=== PATIENT | female | born 1955 | race Caucasian/White ===

== ENCOUNTER 2017-03-13 00:51 | Emergency (ER) | payer MEDICAID ==
--- NOTE | ~2017-03-13 | CR21 ---
[facility] A Service of [facility] & [facility] RADIOLOGY TEXT RESULTS PATIENT: SERENA ACEVEDO LOCATION: [facility] : 59 UNIT #: [id number] AGE: [address]: Jose Wilkins MD SEX: F ORDER DR: [id number] [facility] [address] [place], [place] [address] [id number] E MR#: [id number] Acc #: [id number] NAME: SERENA ACEVEDO : 1955 SEX: F STUDY DATE/TIME: 03/13/2017 01:48 UNIT: [facility] ROOM: STUDY DESCRIPTION: CR Ankle Min 3 Views Rt Attending Physician: Jose Wilkins M.D. Ordering Physician: Jose Wilkins M.D. Primary Care Physician: Primary Care Physician No MEDICAL IMAGING REPORT This report is preliminary unless electronic signature is present EXAM Right ankle, 03/13 0148 hours INDICATIONS Ankle pain and swelling for 4 days. No trauma. FINDINGS 3 views of the right ankle were obtained. Patient is osteopenic. There is chronic bone fragment below the distal fibula suggesting old trauma. No acute fracture or malalignment is seen. Soft tissue swelling is present, predominantly on the medial side. IMPRESSION No acute fracture or malalignment. Patient is osteopenic and there is some soft tissue swelling, predominantly on the medial side. Dictated by... Cl Graham Jr., M.D. THIS IS AN ELECTRONICALLY VERIFIED REPORT Cl Graham Jr., M.D. at 03/13/2017 5:36 AM SHEEBA/raghav TD: 03/13/2017 03:18 JOB #: [id number] MEDICAL IMAGING REPORT Page 1 of 1 COPY
--- NOTE | ~2017-03-13 | EKG ---
PATIENT: SERENA ACEVEDO UNIT #: [id number] Ventricular Rate: 81 BPM Atrial Rate: 81 BPM P-R Interval: 112 ms QRS Duration: 86 ms Q-T Interval: 396 ms QTC Calculation(Bezet): 460 ms P [place]: 18 degrees Calculated R [place]: 55 degrees Calculated T [place]: 52 degrees Diagnosis Line: Normal sinus rhythm Diagnosis Line: Normal ECG Diagnosis Line: No previous ECGs available Diagnosis Line: Confirmed by LISSETT PHILLIPS MD ([id number]) on Diagnosis Line: 03/13/2017 8:55:27 AM INTERPRETING MD: JACQUELINE JOSHI
--- NOTE | ~2017-03-13 | CR72 ---
[facility] A Service of [facility] & [facility] RADIOLOGY TEXT RESULTS PATIENT: SERENA ACEVEDO LOCATION: [facility] : 59 UNIT #: [id number] AGE: [address]: Jose Wilkins MD SEX: F ORDER DR: [id number] [facility] [address] [place], [place] [address] [id number] E MR#: [id number] Acc #: [id number] NAME: SERENA ACEVEDO : 1955 SEX: F STUDY DATE/TIME: 03/13/2017 01:47 UNIT: [facility] ROOM: STUDY DESCRIPTION: CR Chest Single View Portable Attending Physician: Jose Wilkins M.D. Ordering Physician: Jose Wilkins M.D. Primary Care Physician: Primary Care Physician No MEDICAL IMAGING REPORT This report is preliminary unless electronic signature is present EXAM Portable chest, 03/13 at 0147 hours INDICATIONS Shortness of air and left side chest pain with swelling in the ankles. Symptoms for 4 days. FINDINGS AP portable chest is compared with 04/05/2016. Cardiac and mediastinal contours are normal. The lungs are clear. No pneumothorax is seen. Multiple old left rib fractures are again identified. IMPRESSION No active disease. Dictated by... Cl Graham Jr., M.D. THIS IS AN ELECTRONICALLY VERIFIED REPORT Cl Graham Jr., M.D. at 03/13/2017 5:36 AM SHEEBA/raghav TD: 03/13/2017 03:24 JOB #: [id number] MEDICAL IMAGING REPORT Page 1 of 1 COPY
[~2017-03-13 00:51] MED LIST: ADVAIR 250-501 EAC1 IH; BACTRIM DS TABL1 TA1 PO; BACTROBAN22 GM TOP; FAMOTIDINE PO; FOLIC ACID1 MG PO; KEFLEX125 MG/5 M PO; MEDROL4 MG/DOSE- PO; METHADOSE PO; NO MEDICATIONS; OMNICEF300 MG PO; PREDNISONE PO; PROAIR HFA8.5 GM IH; PYRIDIUM PO; THERAPEUTIC FOR1 TA1 PO; VIBRAMYCIN100 M1 PO; ZITHROMAX500 MG PO
[2017-03-13 03:13] LABS: BASOPHIL% 0.2 % (0-2.5); EOSINOPHIL# 0.1 X10e3 (0-0.7); EOSINOPHIL% 1.1 % (0.0-7.0); HEMATOCRIT 37.8 % (35.0-45.0); HEMOGLOBIN 12.8 gm/dL (12.0-16.0); LYMPHOCYTE# 4.2 X10e3 (1.0-3.5); LYMPHOCYTE% 47.3 % (17.0-45.0); MEAN CELL VOLUME 88.9 FL (83-96); MEAN CORPUSCULAR HEMOGLOBIN 30.1 PG (28-34); MEAN CORPUSCULAR HGB CONC 33.9 g/dL (30-36); MEAN PLATELET VOLUME 8.2 FL (6.5-11.5); MONOCYTE# 0.5 X10e3 (0-1.0); NEUTROPHIL# 4.1 X10e3 (1.5-7.1); NEUTROPHIL% 45.4 % (40-75); PLATELET COUNT 255 X10e3 (140-420); RED BLOOD COUNT 4.25 X10e (3.90-5.30); RED CELL DISTRIBUTION WIDTH 14.2 % (11.0-15.5); WHITE BLOOD COUNT 8.9 X10e3 (4.0-10.5)
[2017-03-13 03:16] LABS: DIFF IND NO
[2017-03-13 03:37] LABS: ALBUMIN SERUM 3.8 g/dL (3.5-5.0); BILIRUBIN, DIRECT 0.2 mg/dL (0.0-0.2); BILIRUBIN,INDIRECT 0.3 mg/dL (0.0-0.9); BILIRUBIN,TOTAL 0.5 mg/dL (0.2-2.0); CALCIUM SERUM 8.7 mg/dL (8.4-10.2); CREATININE SERUM 0.6 mg/dL (0.6-1.4); GLOM FILT RATE Estimated 99.8 mL/min (>60); POTASSIUM 3.4 mmol/L (3.5-5.1); PROTEIN TOTAL SERUM 7.3 g/dL (6.0-8.3)
[2017-03-13 04:21] LABS: URINE SOURCE CLEAN CATCH
[2017-03-13 04:25] LABS: URINE APPEARANCE CLEAR; URINE BILIRUBIN NEG (NEG); URINE BLOOD TRACE (NEG); URINE COLOR YELLOW; URINE GLUCOSE NEG (NEG); URINE KETONE NEG (NEG); URINE LEUKOCYTE ESTERASE TRACE (NEG); URINE NITRATE NEG (NEG); URINE PH 5.5 (5-8); URINE PROTEIN NEG (NEG); URINE SPECIFIC GRAVITY 1.007 (1.003-1.035)
[2017-03-13 04:28] LABS: URINE BACTERIA AUWI NEG (NEGATIVE); URINE SQUAMOUS EPITHELIAL CELL NONE SEEN /[HPF]
[2017-03-13 04:31] LABS: CULTURE INDICATED? NO
[2017-03-13 04:35] LABS: AMPHETAMINE NEG (NEG); BARBITURATES NEG (NEG); BENZODIAZEPINES NEG (NEG); COCAINE NEG (NEG); MARIJUANA NEG (NEG); OPIATES NEG (NEG); TRICYCLIC ANTIDEPRESSANTS NEG (NEG); U METHADONE NEG (NEG)
== END 2017-03-13 06:30 | disposition home or self-care (01) ==
LOC: CED 00:51
PROVIDERS: Emergency Medicine
DX: J44.1 Chronic obstructive pulmonary disease with (acute) exacerbation (principal); R60.0 Localized edema; M19.071 Primary osteoarthritis, right ankle and foot
CPT/HCPCS: 36415; 71010; 73610; 80048; 80076; 80307; 81003; 83880; 85025; 93005; 94640; 96374; 96375; 99284; J1885; J2930

== ENCOUNTER 2017-04-18 11:44 | Emergency (ER) | payer MEDICAID ==
--- NOTE | ~2017-04-18 | EKG ---
PATIENT: SERENA ACEVEDO UNIT #: [id number] Ventricular Rate: 75 BPM Atrial Rate: 75 BPM P-R Interval: 110 ms QRS Duration: 84 ms Q-T Interval: 464 ms QTC Calculation(Bezet): 518 ms P [place]: 73 degrees Calculated R [place]: 56 degrees Calculated T [place]: 58 degrees Diagnosis Line: Sinus rhythm with short IN Diagnosis Line: Prolonged QT Diagnosis Line: Abnormal ECG Diagnosis Line: When compared with ECG of 13-MAR-2017 02:14, Diagnosis Line: QT has lengthened Diagnosis Line: Confirmed by LUCILA WISEMAN MD ([id number]) on Diagnosis Line: 04/18/2017 3:09:29 PM INTERPRETING MD: ESTEBAN
--- NOTE | ~2017-04-18 | CR72 ---
[facility] A Service of [facility] & [facility] RADIOLOGY TEXT RESULTS PATIENT: SERENA ACEVEDO LOCATION: [facility] : 59 UNIT #: [id number] AGE: [address]: Jose Wilkins MD SEX: F ORDER DR: [id number] [facility] [address] [place], [place] [address] [id number] E MR#: [id number] Acc #: [id number] NAME: SERENA ACEVEDO. : 1955 SEX: F STUDY DATE/TIME: 04/18/2017 13:18 UNIT: [facility] ROOM: STUDY DESCRIPTION: CR Chest Single View Portable Attending Physician: Jose Wilkins M.D. Ordering Physician: Jose Wilkins M.D. Primary Care Physician: No Primary Care Physician MEDICAL IMAGING REPORT This report is preliminary unless electronic signature is present EXAM Portable chest; 04/18/2017. HISTORY Left-side chest pain and left shoulder pain, shortness of breath, dizziness, nausea and fever beginning today. Asthma. Smoking history for 40 years. FINDINGS The heart is normal in size. Lungs are hyperinflated with emphysematous and fibrotic changes characteristic of COPD. No airspace consolidation is seen. There are no pleural effusions. Old healed left rib fractures are noted. There is an acute or subacute fracture involving the region of the surgical neck of the proximal left humerus. IMPRESSION 1. COPD. No active pulmonary disease. 2. Acute or subacute fracture involving the surgical neck of the proximal left humerus. Dictated by... Brigido Durham M.D. THIS IS AN ELECTRONICALLY VERIFIED REPORT Brigido Durham M.D. at 04/19/2017 6:29 AM DREW/joe TD: 04/18/2017 16:01 JOB #: [id number] MEDICAL IMAGING REPORT Page 1 of 1 COPY
--- NOTE | ~2017-04-18 | CR229 ---
[facility] A Service of [facility] & [facility] & [facility] RADIOLOGY TEXT RESULTS PATIENT: SERENA ACEVEDO LOCATION: [facility] : 59 UNIT #: [id number] AGE: [address]: Jose Wilkins MD SEX: F ORDER DR: [id number] [facility] [address] [place], [place] [address] [id number] E MR#: [id number] Acc #: [id number] NAME: SERENA ACEVEDO. : 1955 SEX: F STUDY DATE/TIME: 04/18/2017 13:18 UNIT: [facility] ROOM: STUDY DESCRIPTION: CR Shoulder Min 2 View Lt Attending Physician: Jose Wilkins M.D. Ordering Physician: Ed Doctor [id number] [facility] Primary Care Physician: Primary Care Physician No MEDICAL IMAGING REPORT This report is preliminary unless electronic signature is present EXAM Left shoulder 3 views, 04/18/2017 HISTORY Left shoulder pain beginning today status post fall. FINDINGS Three views of the left shoulder demonstrate a comminuted minimally-displaced fracture through the surgical neck of the left humerus. No other fracture or dislocation is seen. The bones are osteopenic. Old healed left rib fractures are noted. IMPRESSION 1. Comminuted minimally-displaced fracture through the surgical neck of the proximal left humerus. 2. Old healed left rib fractures. 3. Osteopenia. Dictated by... Brigido Durham M.D. THIS IS AN ELECTRONICALLY VERIFIED REPORT Brigido Durham M.D. at 04/19/2017 6:29 AM Zoltan TD: 04/18/2017 16:00 JOB #: [id number] MEDICAL IMAGING REPORT Page 1 of 1 COPY
[2017-04-18 13:08] LABS: POC - CKMB 5.1 ng/mL (0.0-7.9); POC - TROPONIN <0.05 ng/mL (<=0.05)
[2017-04-18 13:22] LABS: BASOPHIL% 0.5 % (0-2.5); DIFF IND NO; EOSINOPHIL% 0.5 % (0.0-7.0); HEMOGLOBIN 12.9 gm/dL (12.0-16.0); LYMPHOCYTE% 12.3 % (17.0-45.0); MEAN CELL VOLUME 95.7 FL (83-96); MEAN CORPUSCULAR HGB CONC 32.4 g/dL (30-36); MEAN PLATELET VOLUME 9.1 FL (6.5-11.5); MONOCYTE# 0.5 X10e3 (0-1.0); MONOCYTE% 6.4 % (3.0-12.0); NEUTROPHIL# 6.6 X10e3 (1.5-7.1); NEUTROPHIL% 80.3 % (40-75); PLATELET COUNT 218 X10e3 (140-420); RED BLOOD COUNT 4.18 X10e (3.90-5.30); RED CELL DISTRIBUTION WIDTH 18.1 % (11.0-15.5); WHITE BLOOD COUNT 8.2 X10e3 (4.0-10.5)
[2017-04-18 13:33] LABS: PARTIAL THROMBOPLASTIN TIME 23.1 SECONDS (23.5-31.3); PROTHROMBIN TIME (PATIENT) 11.3 SECONDS (10.0-11.7)
[2017-04-18 13:45] LABS: ALBUMIN SERUM 4.1 g/dL (3.5-5.0); BILIRUBIN, DIRECT 0.2 mg/dL (0.0-0.2); BILIRUBIN,INDIRECT 0.7 mg/dL (0.0-0.9); BILIRUBIN,TOTAL 0.9 mg/dL (0.2-2.0); BUN/CREATININE RATIO 12.85; CALCIUM SERUM 9.3 mg/dL (8.4-10.2); CREATININE SERUM 0.7 mg/dL (0.6-1.4); GLOM FILT RATE Estimated 94.8 mL/min (>60); POTASSIUM 3.1 mmol/L (3.5-5.1); PROTEIN TOTAL SERUM 8.5 g/dL (6.0-8.3)
[2017-04-18 15:10] LABS: POC - CKMB 3.4 ng/mL (0.0-7.9); POC - TROPONIN <0.05 ng/mL (<=0.05)
== END 2017-04-18 16:20 | disposition home or self-care (01) ==
LOC: CFTX 11:44 → CED 11:44
PROVIDERS: Emergency Medicine
DX: S42.212A Unspecified displaced fracture of surgical neck of left humerus, initial encounter for closed fracture (principal); I10 Essential (primary) hypertension; F19.10 Other psychoactive substance abuse, uncomplicated; F10.10 Alcohol abuse, uncomplicated; E11.9 Type 2 diabetes mellitus without complications; J44.9 Chronic obstructive pulmonary disease, unspecified; F17.210 Nicotine dependence, cigarettes, uncomplicated; W01.0XXA Fall on same level from slipping, tripping and stumbling without subsequent striking against object, initial encounter; Y92.009 Unspecified place in unspecified non-institutional (private) residence as the place of occurrence of the external cause; Z79.899 Other long term (current) drug therapy; Z88.5 Allergy status to narcotic agent; Z85.828 Personal history of other malignant neoplasm of skin
CPT/HCPCS: 36415; 71010; 73030; 80048; 80076; 82553; 84484; 85025; 85610; 85730; 93005; 96374; 96375; 96376; 99284; J2270; J2405